=== PATIENT | male | born 2000 | race Two or more races ===

== ENCOUNTER 2025-09-05 17:15 | Inpatient (IN) | payer MEDICAID ==
[~2025-09-05] VITALS: Ht 170.2 cm; Wt 90.7 kg
[2025-09-05] MEDS ORDERED: PIPERACILLIN/TAZOBACTAM/D5W 50 ML IV ONE (17:41)
[2025-09-05] MEDS: IV NORMAL SALINE 1000 ML BAG IV ONE (17:42)
[2025-09-05] MEDS ORDERED: VANCOMYCIN IV 200 ML ONE (17:42)
[2025-09-05] MEDS: VANCOMYCIN IV 1,000 MG in IV DEXTROSE 5% 250 ML IV ONE (17:42)
[2025-09-05 17:56] LABS: PLATELET COUNT (AUTO) 299 K/uL (152-348); RED BLOOD CELL COUNT(AUTO) 5.38 MIL/uL (4.06-5.63); RED CELL DISTRIBUTION WIDTH 13.6 % (12.1-16.2); WHITE BLOOD COUNT (AUTO) 13.0 K/uL (3.6-10.2)
[2025-09-05] MEDS ORDERED: TDAP DIPH,PERTUSS,TET VAC/PF 0.5 ML DISP.SYRIN IM ONE (17:58)
[2025-09-05] MEDS: TDAP DIPH,PERTUSS,TET VAC/PF 0.5 ML DISP.SYRIN IM ONE (18:00)
[2025-09-05] MEDS: PIPERACILLIN SODIUM/TAZOBACTAM 3.375 G in IV DEXTROSE 5% 50 ML IV ONE (18:01)
[2025-09-05 18:05] LABS: CREATININE 0.8 mg/dL (0.6-1.3); SODIUM SERUM 138 mmol/L (136-145); UREA NITROGEN, BLOOD 11 mg/dL (7-18)
[2025-09-05 18:11] LABS: ASPARTATE AMINOTRANSFERASE 41 U/L (15-37); TOTAL PROTEIN, SERUM 9.0 g/dL (6.4-8.2)
[2025-09-05] MEDS ORDERED: ONDANSETRON 4 MG/2 ML VIAL IV PRN (18:30)
[2025-09-05] MEDS: HYDROCODONE/APAP 10-325 MG TABLET PO PRN (18:37)
[2025-09-05 18:53] LABS: *BILIRUBIN,URIN NEGATIVE (NEGATIVE); *BLOOD, URINE NEGATIVE (NEGATIVE); *CLARITY,URINE CLEAR (CLEAR); *COLOR,URINE YELLOW (YELLOW); *KETONES,URINE NEGATIVE (NEGATIVE); *PROTEIN,URINE NEGATIVE (NEGATIVE); *UROBILINOGEN,URINE 0.2 E.U./dl (NORMAL); LEUKOCYTE ESTERASE ,URINE NEGATIVE (NEGATIVE); NITRITE, URINE NEGATIVE (NEGATIVE); UGLUCOSE NEGATIVE (NEGATIVE)
[2025-09-05 19:15] VITALS: BP 142/79
[2025-09-05 21:00] VITALS: BP 127/76; TEMP 98.9; O2SAT 96
[2025-09-05] MEDS ORDERED: PIPERACILLIN SODIUM/TAZO 3.375 GM VIAL ONE (23:20)
[2025-09-05] MEDS: PIPERACILLIN SODIUM/TAZOBACTAM 3.375 G in IV DEXTROSE 5% 50 ML IV SCH (23:39)
[2025-09-06] MEDS: VANCOMYCIN IV 1,250 MG in IV DEXTROSE 5% 250 ML IV SCH (01:13)
[2025-09-06 05:40] VITALS: BP 129/80; TEMP 98.1; O2SAT 95
[2025-09-06] MEDS: PANTOPRAZOLE SODIUM 40 MG TABLET.DR PO SCH (06:21)
[2025-09-06 07:32] LABS: PLATELET COUNT (AUTO) 262 K/uL (152-348); RED BLOOD CELL COUNT(AUTO) 5.00 MIL/uL (4.06-5.63); RED CELL DISTRIBUTION WIDTH 13.8 % (12.1-16.2); WHITE BLOOD COUNT (AUTO) 10.5 K/uL (3.6-10.2)
[2025-09-06 07:57] LABS: CREATININE 0.8 mg/dL (0.6-1.3); SODIUM SERUM 141.0 mmol/L (136-145); UREA NITROGEN, BLOOD 12.0 mg/dL (7-18)
[2025-09-06 12:00] VITALS: BP 132/81; TEMP 97.6; O2SAT 97
[2025-09-06 16:00] VITALS: BP 124/56; TEMP 97.2; O2SAT 97
[2025-09-06 20:00] VITALS: BP 122/71; TEMP 98.4; O2SAT 95
[2025-09-07 04:00] VITALS: BP 155/75; TEMP 97.9; O2SAT 97
[2025-09-07 07:46] LABS: PLATELET COUNT (AUTO) 275 K/uL (152-348); RED BLOOD CELL COUNT(AUTO) 5.20 MIL/uL (4.06-5.63); RED CELL DISTRIBUTION WIDTH 13.8 % (12.1-16.2); WHITE BLOOD COUNT (AUTO) 10.6 K/uL (3.6-10.2)
[2025-09-07 07:59] LABS: ASPARTATE AMINOTRANSFERASE 32.0 U/L (15-37); CREATININE 1.0 mg/dL (0.6-1.3); SODIUM SERUM 141.0 mmol/L (136-145); TOTAL PROTEIN, SERUM 7.8 g/dL (6.4-8.2); UREA NITROGEN, BLOOD 11.0 mg/dL (7-18)
[2025-09-07] MEDS: VANCOMYCIN IV 1,000 MG in IV DEXTROSE 5% 250 ML IV SCH (10:41)
[2025-09-07] MEDS: VANCOMYCIN IV 1,250 MG in IV DEXTROSE 5% 250 ML IV SCH (10:55)
[2025-09-07 11:27] VITALS: BP 123/70; TEMP 98.3; O2SAT 94
[2025-09-07 16:23] VITALS: BP 132/78; TEMP 98; O2SAT 96
[2025-09-07 21:57] VITALS: BP 134/83; TEMP 99.2; O2SAT 95
[2025-09-08 07:10] VITALS: BP 136/85; TEMP 98.6; O2SAT 96
[2025-09-08 07:39] LABS: CREATININE 0.9 mg/dL (0.6-1.3); SODIUM SERUM 139.0 mmol/L (136-145); UREA NITROGEN, BLOOD 11.0 mg/dL (7-18)
[2025-09-08 07:44] LABS: PLATELET COUNT (AUTO) 283 K/uL (152-348); RED BLOOD CELL COUNT(AUTO) 5.29 MIL/uL (4.06-5.63); RED CELL DISTRIBUTION WIDTH 13.6 % (12.1-16.2); WHITE BLOOD COUNT (AUTO) 11.3 K/uL (3.6-10.2)
[2025-09-08] MEDS: SILVER SULFADIAZINE 1% CREAM 50 GM TP SCH (09:27)
[2025-09-08] MEDS ORDERED: VANCOMYCIN IV 1,250 MG in IV DEXTROSE 5% 250 ML IV SCH ×2 (11:15→12:00)
[2025-09-08 12:00] VITALS: BP 133/86; TEMP 98.7; O2SAT 97
[2025-09-08] MEDS: VANCOMYCIN IV 1,250 MG in IV DEXTROSE 5% 250 ML IV SCH (15:15)
[2025-09-08 16:00] VITALS: BP 139/90; TEMP 98.8; O2SAT 95
[2025-09-08 19:26] VITALS: BP 138/87; TEMP 99; O2SAT 95
[2025-09-08] MEDS: ACETAMINOPHEN 325 MG TABLET PO PRN (21:12)
[2025-09-09 05:41] VITALS: BP 141/84; TEMP 98.5; O2SAT 97
[2025-09-09 07:53] VITALS: BP 130/76; TEMP 98.6; O2SAT 95
[2025-09-09 09:37] LABS: PLATELET COUNT (AUTO) 299 K/uL (152-348); RED BLOOD CELL COUNT(AUTO) 5.80 MIL/uL (4.06-5.63); RED CELL DISTRIBUTION WIDTH 13.7 % (12.1-16.2); WHITE BLOOD COUNT (AUTO) 13.8 K/uL (3.6-10.2)
[2025-09-09 10:02] LABS: ASPARTATE AMINOTRANSFERASE 38.0 U/L (15-37); TOTAL PROTEIN, SERUM 8.8 g/dL (6.4-8.2)
[2025-09-09 10:21] LABS: CREATININE 1.0 mg/dL (0.6-1.3); SODIUM SERUM 136.0 mmol/L (136-145); UREA NITROGEN, BLOOD 11.0 mg/dL (7-18)
[2025-09-09 11:35] VITALS: BP 144/78; TEMP 97.6; O2SAT 98
[2025-09-09 16:08] VITALS: BP 127/76; TEMP 97.7; O2SAT 98
[2025-09-09] MEDS: VANCOMYCIN IV 1,250 MG in IV DEXTROSE 5% 250 ML IV SCH (16:18)
[2025-09-09 19:52] VITALS: BP 146/89; TEMP 98.3; O2SAT 97
[2025-09-10 05:08] VITALS: BP 128/67; TEMP 98.6; O2SAT 96
[2025-09-10 06:43] LABS: PLATELET COUNT (AUTO) 298 K/uL (152-348); RED BLOOD CELL COUNT(AUTO) 5.73 MIL/uL (4.06-5.63); RED CELL DISTRIBUTION WIDTH 13.4 % (12.1-16.2); WHITE BLOOD COUNT (AUTO) 12.4 K/uL (3.6-10.2)
[2025-09-10 06:54] LABS: CREATININE 1.2 mg/dL (0.6-1.3); SODIUM SERUM 139.0 mmol/L (136-145); UREA NITROGEN, BLOOD 12.0 mg/dL (7-18)
[2025-09-10 07:47] VITALS: BP 133/82; TEMP 98.4; O2SAT 98
[2025-09-10 11:18] LABS: HIV-1/2 ANTIBODY NON REACTIVE (NONREACTIVE)
[2025-09-10 12:43] VITALS: BP 133/82; TEMP 98.4; O2SAT 97
[2025-09-10] MEDS: VANCOMYCIN HCL 1,500 MG in IV DEXTROSE 5% 500 ML IV SCH (14:00)
[2025-09-10 15:37] VITALS: BP 138/80; TEMP 97.6; O2SAT 98
[2025-09-10] MEDS: PROTEIN SUPPLEMENT (PROSTAT) 30 ML LIQUID PO SCH (17:31)
[2025-09-10] MEDS ORDERED: DOXY100T2 PO (17:58)
[2025-09-10] MEDS ORDERED: ACET-3752 PO (17:58)
[2025-09-11 05:08] LABS: HEPATITIS B CORE AB, TOTAL Negative (Negative); HEPATITIS B SURFACE AB, QUAL Reactive (.); HEPATITIS B SURFACE AG Negative (Negative); HEPATITIS C VIRUS ANTIBODY Non Reactive (Non Reactive)
== END 2025-09-10 19:20 | disposition home or self-care (01) | DRG 380 ==
LOC: ER 17:22 → MEDSURG3 20:31
PROVIDERS: ADMIT Nurse Practitioner Family; ATTEND Student in an Organized Health Care Education/Training Program
DX: L97.516 Non-pressure chronic ulcer of other part of right foot with bone involvement without evidence of necrosis (principal); M86.171 Other acute osteomyelitis, right ankle and foot; B95.62 Methicillin resistant Staphylococcus aureus infection as the cause of diseases classified elsewhere; L02.611 Cutaneous abscess of right foot; L03.031 Cellulitis of right toe; E66.9 Obesity, unspecified; Z68.31 Body mass index [BMI] 31.0-31.9, adult; R03.0 Elevated blood-pressure reading, without diagnosis of hypertension; R60.0 Localized edema; R74.01 Elevation of levels of liver transaminase levels
CPT/HCPCS: 36415; 71045; 73630; 73660; 73721; 83605; 83735; 84100; 84484; 85025; 85730; 86704; 86706; 86803; 87040; 87070; 87077; 87086; 87340; 87806; 90715; A4606; A4663; G0378; J2543; J3373; J3374; J7040; J7050; J7060